=== PATIENT | male | born 1935 | race Caucasian/White ===

== ENCOUNTER 2022-11-03 08:34 | Outpatient (CLI) | payer MEDICARE | END 2022-11-03 08:35 | disposition home or self-care (01) | LOC: CSHSPEC 08:34 | PROVIDERS: ATTEND Specialist | DX: C90.00 Multiple myeloma not having achieved remission (principal); M47.26 Other spondylosis with radiculopathy, lumbar region; M25.552 Pain in left hip; Z95.0 Presence of cardiac pacemaker; M48.061 Spinal stenosis, lumbar region without neurogenic claudication; M48.07 Spinal stenosis, lumbosacral region; G95.9 Disease of spinal cord, unspecified | CPT/HCPCS: 71045; 72148; 72195 ==

== ENCOUNTER 2023-01-13 09:53 | Outpatient (CLI) | payer MEDICARE | END 2023-01-13 09:54 | disposition home or self-care (01) | LOC: CSHSPEC 09:53 | PROVIDERS: ATTEND Specialist | DX: M84.58XA Pathological fracture in neoplastic disease, other specified site, initial encounter for fracture (principal); S32.000A Wedge compression fracture of unspecified lumbar vertebra, initial encounter for closed fracture; M84.48XA Pathological fracture, other site, initial encounter for fracture; M47.816 Spondylosis without myelopathy or radiculopathy, lumbar region | CPT/HCPCS: 72148; 72195 ==